=== PATIENT | female | born 1995 | race Caucasian/White ===

== ENCOUNTER 2018-02-06 16:05 | Emergency (ER) | payer OTHER ==
[~2018-02-06] VITALS: Ht 157.5 cm; Wt 81.6 kg
[~2018-02-06 16:05] MED LIST: AMOXICILLIN875 M1 PO; AMOXIL500 MG PO; AUGMENTIN 875 M1 TAB PO; AUGMENTIN 875-1 EACH PO; BACTRIM 400 MG-1 TAB PO; BACTRIM DS 8001 TAB PO; CLEOCIN HCL300 MG PO; FIORICET 325 MG1 TAB PO; FLAG500 PO; FLEXERIL10 MG PO; IBU800 MG PO; IBUPROFEN800 M1 PO; LIDOCAINE HCL V15 ML PO; MOBIC 15MG15 MG PO; MOTRIN800 MG PO; PERCOCET 325 MG1 TA2 PO; PERCOCET 5-3251 EACH PO; REGLAN10 MG PO; TRAMADOL HCL50 M1 PO; TRAMADOL50 MG PO; VICODIN5-300 PO; ZOFRAN4 M1 SL
--- NOTE | 2018-02-06 17:16 | ED GI/GU/ABDOMINAL COMPLAINT ---
History of Present Illness General Chief Complaint: Female Urogenital Problems Stated Complaint: SENT BY MOTOR MAN FOR "SHOT", NOT Source: patient Exam Limitations: no limitations Vital Signs & Intake/Output Vital Signs & Intake/Output Vital Signs Date Time Temp Pulse Resp B/P B/P Pulse O2 O2 Flow FiO2 Mean Ox Delivery Rate 02/06 1722 98.0 76 18 140/90 99 Room Air 02/06 1718 Room Air 02/06 1629 97.3 74 18 165/88 99 Room Air Allergies Coded Allergies: NO KNOWN ALLERGIES (11/13/16) Reconcile Medications Amoxicillin 875 MG TABLET 1 TAB PO BID INFECTION Ibuprofen 800 MG TABLET 1 TAB PO TID PRN PAIN Lidocaine HCl (Lidocaine HCl Viscous) 2 % SOLUTION 15 ML PO 4 TIMES/DAY PRN ORAL PAIN Tramadol HCl 50 MG TABLET 1 TAB PO TIDPRN PRN PAIN Triage Note: PT SENT BY HER OB FOR TREATMENT FOR STD Triage Nurses Notes Reviewed? yes ? n Is pt currently ? No Onset: Abrupt Duration: day(s):, constant, continues in ED Timing: recent history Radiation: no radiation HPI: 22-year-old female comes into the emergency room because she was sent in by her MOTOR MAN doctor. She tested positive for gonorrhea. She was told to come here for treatment. She had routine swabs done with her follow-up appointment with her MOTOR MAN doctor. She tested positive. Sexually active with one patient. Denies any other associated symptoms. (Armaan Sweeney) Past History Travel History Traveled to [place] past 21 day No Medical History Any Pertinent Medical History? see below for history Neurological: NONE EENT: NONE Cardiovascular: NONE Respiratory: NONE Gastrointestinal: NONE Hepatic: NONE Renal: NONE Musculoskeletal: NONE Psychiatric: NONE Endocrine: NONE Blood Disorders: NONE Cancer(s): NONE PARKING STATION ATTENDANT/Reproductive: NONE History of MRSA: Yes History of VRE: No History of CDIFF: No Surgical History Surgical History: N Psychosocial History Who do you live with Family Services at Home None What is your primary language Singaporean Tobacco Use: Never used ETOH Use: denies use Illicit Drug Use: denies illicit drug use Family History Hx Contributory? No ( ) (Armaan Sweeney) Review of Systems Review of Systems Constitutional: Reports: no symptoms. EENTM: Reports: no symptoms. Respiratory: Reports: no symptoms. Cardiovascular: Reports: no symptoms. GI: Reports: no symptoms. Genitourinary: Reports: see HPI. Musculoskeletal: Reports: no symptoms. Skin: Reports: no symptoms. Neurological/Psychological: Reports: no symptoms. Hematologic/Endocrine: Reports: no symptoms. Immunologic/Allergic: Reports: no symptoms. All Other Systems: Reviewed and Negative (Armaan Sweeney) Physical Exam Physical Exam General Appearance: well developed/nourished, no apparent distress, alert, awake Head: atraumatic, normal appearance Eyes: Bilateral: normal appearance. Ears, Nose, Throat, Mouth: hearing grossly normal, moist mucous membrane Neck: normal inspection Respiratory: no respiratory distress Gastrointestinal: not examined becasue no pain complaints Back: normal range of motion Extremities: normal range of motion Neurologic/Psych: awake, alert, oriented x 3 Skin: intact Core Measures ACS in differential dx? No Sepsis Present: No Sepsis Focused Exam Completed? No (Armaan Sweeney) Progress Differential Diagnosis: PID/cervicitis, UTI/pyelo, gonorrhea, chlamydia, PID Plan of Care: Current Medications Sig/Jonathan Start time Last Medication Dose Stop Time Status Admin Azithromycin 1,000 MG ONCE ONE 02/06 1715 UNVr (Zithromax) 02/07 1716 Ceftriaxone Sodium 250 MG ONCE ONE 02/06 1715 UNir (Rocephin) 02/07 1716 Initial ED EKG: none (Armaan Sweeney) Departure Departure Disposition: HOME OR SELF CARE Condition: Stable Clinical Impression Primary Impression: Gonorrhea Referrals: Trina Somers APRN (PCP/Family) Additional Instructions: Continue oral antibiotics at home. Return if any concerns worsening symptoms. Please go over all results of today's visit with your primary care doctor. Contact your primary care doctor to let them know you were here in the emergency room. There may be nonspecific findings which may not be related to your visit today here in the emergency room but may require further evaluation and chronic monitoring by your primary care doctor. If you had a laceration today the chance of foreign body always remains. You should follow-up with your primary care doctor for recheck in 3-5 days for a wound check. If you had an x-ray done there is a chance that a fracture could have been missed on initial read and you should follow-up with your primary care doctor for repeat x-rays if symptoms persist. If your blood pressure was elevated here in the emergency room please have rechecked by [facility] primary care doctor within the next 48. If you were prescribed a narcotic here in the emergency room or any type of controlled substances you're not allowed to drive while taking this medication or operate any type of heavy machinery. Narcotics can make you feel lightheaded dizziness nausea and can cause constipation. You may need to grape picker a stool softener. Thank you for choosing [facility] emergency room. Please return to the emergency room immediately if you have any other concerns worsening of symptoms. Departure Forms: Customer Survey General Discharge Information Comments 02/06/18 Due to the fact that the patient had a pelvic exam she was just treated. She was medicated. She was discharged and told to follow-up with her a operator. (Alec TRIPATHI,Armaan) PA/INNOVATION ANALYST Co-Sign Statement Statement: ED Attending supervision documentation- [] I saw and evaluated the patient. I have also reviewed all the pertinent lab results and diagnostic results. I agree with the findings and the plan of care as documented in the PA's/INNOVATION ANALYST's documentation. [x] I have reviewed the ED Record and agree with the PA's/INNOVATION ANALYST's documentation. [] Additions or exceptions (if any) to the PAs/INNOVATION ANALYST's note and plan are summarized below: [] (Omar Thomson DO)
[2018-02-06 17:22] VITALS: BP 140/90
== END 2018-02-06 17:38 ==
LOC: ERH 16:05
DX: A54.9 Gonococcal infection, unspecified (principal)
CPT/HCPCS: J0456; J0696